=== PATIENT | female | born 1955 | race Caucasian/White ===

== ENCOUNTER → 2016-10-07 | Outpatient (CLI) | payer BC | END | disposition home or self-care (01) | LOC: C.PAPS 07:56 | PROVIDERS: ATTEND Physician Assistant | DX: Z01.419 Encounter for gynecological examination (general) (routine) without abnormal findings (principal) ==

== ENCOUNTER → 2017-01-24 | Outpatient (CLI) | payer BC ==
--- NOTE | 2017-01-24 10:04 | DIAGNOSTIC IMAGING REPORT ---
PELVIC COMPLETE NON OB CLINICAL HISTORY: 61 years-old Female presenting with pelvic pain, right lower quadrant pain on and off for one month, no abnormal bleeding. TECHNIQUE: Real-time grayscale and color and spectral Doppler ultrasound imaging of the pelvis was performed first using a transabdominal probe and subsequently transvaginal for better characterization. COMPARISON: None. FINDINGS: Uterus: Heterogeneously hypoechoic round mass along the right uterine body measures 1.9 x 1.8 x 1.8 cm, most consistent with fibroid. Anteverted. The uterus measures 8.4 x 3.7 x 4.8 cm. Endometrial stripe measures 6-8 mm in thickness. Endometrium slightly heterogeneous appearing. Questionable polypoid focus in the endometrial cavity measuring 9 mm near the fundus. Small amount of fluid in endometrial canal. Normal cervix. Right adnexa: Right ovary normal. Right ovary measures 2.3 x 1.1 x 1.2 cm. Normal color Doppler flow and arterial and venous waveforms within the ovarian parenchyma. Adnexa otherwise normal. Left adnexa: Left ovary normal. Left ovary measures 2.3 x 1.2 x 1.1 cm. Normal color Doppler flow and arterial and venous waveforms within the ovarian parenchyma. Adnexa otherwise normal. Other: No free fluid. IMPRESSION: 1. Heterogeneous endometrium with questionable focal thickening of the endometrium at the fundus. Diagnostic considerations include hyperplasia, endometrial polyp, or other benign or malignant neoplasm. This could be further evaluated with contrast-enhanced MR of the pelvis. 2. In the absence of postmenopausal bleeding, overall endometrial thickness is still within the acceptable range of normal. 3. Normal ovaries. No torsion. Electronically signed by: Daniel Stewart M.D. 01/24/2017 10:03 AM Dictated Date/Time: 01/24/2017 9:56 AM
== END | disposition home or self-care (01) ==
LOC: C.ULTR 08:08
PROVIDERS: ATTEND Nurse Practitioner Adult Health
DX: R10.2 Pelvic and perineal pain (principal)

== ENCOUNTER → 2017-02-28 | Outpatient (CLI) | payer BC ==
[~2017-02-28] MED LIST: OPTIRAY 320 IV PRN
--- NOTE | 2017-02-28 14:32 | DIAGNOSTIC IMAGING REPORT ---
CT OF THE ABDOMEN AND PELVIS WITH CONTRAST CLINICAL HISTORY: Acute right lower quadrant pain. Evaluate for acute diverticulitis. COMPARISON STUDY: Pelvic ultrasound January 24, 2017. TECHNIQUE: Following IV administration of 94 mL of Optiray-320, axial images of the abdomen and pelvis were obtained from the lung bases to the proximal femurs. Images were reviewed in the axial, sagittal, and coronal planes. IV contrast was administered without complication. A dose lowering technique was utilized adhering to the principles of ALARA. Oral contrast was administered. CT DOSE: 245.72 mGy.cm FINDINGS: The right heart chambers are mildly enlarged. The liver, spleen, adrenal glands and pancreas are normal. There is no biliary or pancreatic ductal dilatation. Note is made of a 1.5 cm cyst arising from the lower pole of the right kidney. A subcentimeter hypodense lesion within mid pole the left kidney is too small to characterize but likely reflects a cyst. Caliber and wall thickness of small and large bowel are normal. The appendix is normal. There is no lymphadenopathy or ascites. No suspicious skeletal lesions are identified. IMPRESSION: No acute process within the abdomen or pelvis. Normal appendix. Electronically signed by: Boby Paredes M.D. 02/28/2017 2:31 PM Dictated Date/Time: 02/28/2017 2:17 PM
== END | disposition home or self-care (01) ==
LOC: C.CTS 13:33
PROVIDERS: ATTEND Physician Assistant
DX: R10.31 Right lower quadrant pain (principal); R10.32 Left lower quadrant pain

== ENCOUNTER → 2017-03-13 | Outpatient (CLI) | payer BC ==
--- NOTE | 2017-03-13 12:44 | MAMMOGRAPHY REPORT ---
BILATERAL DIGITAL SCREENING MAMMOGRAM TOMOSYNTHESIS WITH CAD: 03/13/2017 CLINICAL HISTORY: Routine screening. TECHNIQUE: Breast tomosynthesis in addition to standard 2D mammography was performed. Current study was also evaluated with a Computer Aided Detection (CAD) system. COMPARISON: Comparison is made to exams dated: 03/08/2015 mammogram, 03/12/2016 mammogram, 02/04/2014 mamm ogram, 01/14/2013 mammogram, 01/06/2013 mammogram, and 01/02/2012 mammogram - [facility] BREAST COMPOSITION: There are scattered areas of fibroglandular density in both breasts. FINDINGS: The parenchymal pattern is unchanged. No developing mass, architectural distortion or clus ter of suspicious microcalcifications is seen in either breast. IMPRESSION: ACR BI-RADS CATEGORY 2: BENIGN There is no mammographic evidence of malignancy. A 1 year screening mammogram is recommended. The pa tient will receive written notification of the results. Approximately 10% of breast cancers are not detected with mammography. A negative mammographic report should not delay biopsy if a clinically suggestive mass is present. Cindy Durham M.D. ay/:03/13/2017 09:43:40 Breastfeeding Program Coordinator: Kobe SADLER(R)(M), [facility] letter sent: Normal 1/2 BI-RADS Code: ACR BI-RADS Category 2: Benign
== END | disposition home or self-care (01) ==
LOC: C.MAMM 09:27
PROVIDERS: ATTEND Obstetrics & Gynecology
DX: Z12.31 Encounter for screening mammogram for malignant neoplasm of breast (principal)

== ENCOUNTER → 2017-05-15 | Outpatient (CLI) | payer BC ==
[2017-05-15 09:33] LABS: BASO % 0.8 %; BASO ABS # 0.03 K/uL (0-0.2); COMPLETE YES; EOS % 2.7 %; HEMATOCRIT 39.4 % (37-47); IG% 0.3 %; LYMPH % 40.5 %; LYMPH ABS # 1.48 K/uL (1.2-3.4); MEAN CELL VOLUME 96.1 fL (80-100); MEAN CORPUSCULAR HEMOGLOBIN 31.2 pg (25-34); MEAN CORPUSCULAR HGB CONC 32.5 g/dl (32-36); MEAN PLATELET VOLUME 8.9 fL (7.4-10.4); NEUT % 44.7 %; PLATELET COUNT 303 K/uL (130-400); WHITE BLOOD COUNT 3.65 K/uL (4.8-10.8)
[2017-05-15 10:17] LABS: ALB/GLOB RATIO 1.1 (0.9-2); ALKALINE PHOSPHATASE 50 U/L (45-117); ALT/SGPT 21 U/L (12-78); AST/SGOT 20 U/L (15-37); BLOOD UREA NITROGEN 13 mg/dl (7-18); BUN/CREATININE RATIO 15.5 (10-20); CALCIUM 9.4 mg/dl (8.5-10.1); CARBON DIOXIDE 26 mmol/L (21-32); CHLORIDE 106 mmol/L (98-107); CHOLESTEROL 257 mg/dl (0-200); CHOLESTEROL/HDL RATIO 3.1; CREATININE 0.81 mg/dl (0.60-1.20); GLUCOSE 76 mg/dl (70-99); HDL CHOLESTEROL 84 mg/dl; LDL CHOLESTEROL CALCULATED 155 mg/dl; POTASSIUM 4.2 mmol/L (3.5-5.1); SODIUM 138 mmol/L (136-145); TRIGLYCERIDES 88 mg/dl (0-150); VERY LOW DENSITY LIPOPROT CALC 18 mg/dl
== END | disposition home or self-care (01) ==
LOC: C.LAB1850 08:44
PROVIDERS: ATTEND Family Medicine
DX: E78.00 Pure hypercholesterolemia, unspecified (principal); I51.7 Cardiomegaly

== ENCOUNTER → 2017-06-16 | Day surgery (SDC) | payer BC ==
[2017-05-20 13:30] VITALS: Ht 162.6 cm; Wt 65.9 kg
--- NOTE | 2017-06-13 07:54 | HISTORY & PHYSICAL EXAMINATION ---
DATE OF ADMISSION: 06/16/2017 The patient is for surgery on 06/16/2017. CHIEF COMPLAINT: Endometrial mass. HISTORY OF PRESENT ILLNESS: The patient is a 62-year-old white female, 3, para 3, who was found to have an endometrial mass confirmed by hysterosonogram. The patient had been having right lower quadrant pain and had a CT scan done which showed a thickened endometrium or possible endometrial mass. Hysterosonogram was then carried out. She did have a negative Pap smear 10/2016. The patient denies any bleeding. PAST MEDICAL HISTORY: ALLERGIES: THE PATIENT REPORTS ALLERGIES TO DOXYCYCLINE AND PENICILLINS. MEDICATIONS: The patient is currently taking a calcium supplement. SURGERIES: She has had a tonsillectomy at age 3. ILLNESSES: She has a history of diverticulosis. She has also had colon polyps. She has a history of osteoporosis. FAMILY HISTORY: Her mother has celiac disease. Her father had colon cancer. SOCIAL HISTORY: The patient denies smoking cigarettes. She does drink 5-6 drinks of alcohol per week. PHYSICAL EXAMINATION: GENERAL: Height 5 feet 3 inches, weight 142 pounds. VITAL SIGNS: Blood pressure 118/80. HEENT: Grossly within normal limits. NECK: Supple without masses. CHEST: Her lungs are clear without wheezing. HEART: Regular rate and rhythm. No murmurs, gallops or rubs. ABDOMEN: Soft and nontender with no masses. PELVIC: External genitalia normal. Vagina pink and smooth. Cervix is normal in appearance. Uterus within normal limit size and nontender. Adnexa nontender with no masses palpable. EXTREMITIES: No cyanosis, clubbing or edema. IMPRESSION: A 62-year-old menopausal white female with an endometrial mass confirmed by hysterosonogram. PLAN: The patient is for hysteroscopy, dilation of the cervix and curettage with possible removal of polyp/lesion. The patient is aware of the risks of bleeding, infection, perforation of the uterus, damage to internal organs and possible need for further treatment. The patient wishes to proceed with the above surgery. RASHEEDA
[~2017-06-16] VITALS: Ht 162.6 cm; Wt 65.9 kg
[~2017-06-16] MED LIST changes: +ATROPINE SULFATE 0.1 MG/ML 5ML SYR IV PRN; +DEXAMETHASONE SOD INJ 4 MG/ML VIAL ONE; +EpHEDrine SULFATE INJ 50 MG/ML AMP IV PRN; +FENTANYL CITRATE INJ 50 MCG/1 ML 2 ML VIAL IV PRN; +FENTANYL CITRATE INJ 50 MCG/1 ML 2 ML VIAL ONE; +HYDROmorphone INJ 0.5 MG/0.5 ML SYR IV PRN; +IBUPROFEN 200 MG TAB ONE; +IBUPROFEN 600 MG TAB PO PRN; +LACTATED RINGER'S 1000ML 1,000 ML IV SCH; +LIDOCAINE HCL 2% 2 ML VIAL (20MG/ML) ONE; +MIDAZOLAM HCL 1 MG/ML 2ML VIAL ONE; +ONDANSETRON INJ 2 MG/ML 2 ML VIAL IV PRN; +ONDANSETRON INJ 2 MG/ML 2 ML VIAL ONE; -OPTIRAY 320 IV PRN; +PROMETHAZINE HCL INJ 12.5 MG in SODIUM CHLORIDE 0.9% 50ML 50 ML IV PRN; +PROPOFOL IV EMULSION 10 MG/ML 20 ML VIAL IV ONE; +SODIUM CHLORIDE 0.9% 1000ML 1,000 ML IV SCH
--- NOTE | 2017-06-16 07:47 | History & Physical Bridge - SC ---
H&P Re-Evaluation Bridge Note: I have examined the patient, reviewed the History & Physical and in the interval since the performance of the History & Physical I have noted the following changes of clinical significance: No changes noted
--- NOTE | 2017-06-16 08:31 | [facility] Post Operative Brief Note ---
Immediate Operative Summary Operative Date Jun 16, 2017. Pre-Operative Diagnosis Endometrial mass Post-Operative Diagnosis Same as preop Procedure(s) Performed Dilatation And Curettage, Hysteroscopy, Resection of endometrial mass Surgeon Dr. Renee [employer] Surgeon(s) None Estimated Blood Loss 20 mL Findings See dictated note. Specimens A: Endocervical curettings B: Endometrial curettings C: Endometrial mass Complication(s) None Disposition Surgical ICU
--- NOTE | 2017-06-16 08:39 | Discharge Instructions-SurgCtr ---
Discharge Instructions Date of Service Jun 16, 2017. Visit Reason for Visit: Endometrial Mass Discharge Discharge Diagnosis / Problem: S/P Hysteroscopy, D&C, resection of endometrial masses Discharge Goals Goal(s): Diagnostic testing Activity Recommendations Activity Limitations: per Instructions/Follow-up section Anesthesia . Post Anesthesia Instructions: If you have had General Anesthesia or IV Sedation: * Do not drive today. * Resume driving when surgeon permits. * Do not make important decisions or sign legal documents today. * Call surgeon for: 1. Temperature elevations greater than 101 degrees F. 2. Uncontrollable pain. 3. Excessive bleeding. 4. Persistent nausea and vomiting. 5. Medication intolerance (nausea, vomiting or rash). * For nausea and vomiting use only clear liquids such as: tea, soda, bouillon until nausea subsides, then gradually increase diet as tolerated. * If you have any concerns or questions, call your surgeon's office. If physician is unavailable and it is an emergency, call 911 or go to the nearest emergency room. . Instructions / Follow-Up Instructions / Follow-Up ACTIVITY RECOMMENDATIONS: * Avoid tampons, douching, hot tubs, pools, and intercourse until bleeding has stopped. * May shower as usual. * No strenuous activity for 24-48 hours. After 24-48 hours, you may do anything you feel like doing (driving and sports are okay). SPECIAL CARE INSTRUCTIONS: Special Diet: * Mild nausea may occur in the immediate post-operative period. * Take clear liquids such as tea, cola or bouillon until all nausea has subsided; you may then resume your normal diet. Special Care: * Light bleeding and vaginal spotting can last from a few days to 3-4 weeks. Call your doctor if bleeding becomes heavier than the heaviest part of your period. * Check your temperature twice a day for one week. If it goes above 100.4 degrees Fahrenheit (38.0 Celsius), notify your doctor. Call if you have persistent cramping, foul vaginal discharge or nausea and vomiting. * Call your doctor's office for an appointment for 2-4 weeks after your surgery. [phone] FOLLOW-UP VISIT: Call your doctor's office for an appointment for 2-4 weeks after your surgery. Make an appointment with Dr Renee, [phone]. Diet Recommendations Home Diet: resume previous diet Procedures Procedures Performed: Dilatation And Curettage, Hysteroscopy, Resection of endometrial mass Pending Studies Studies pending at discharge: yes List of pending studies: We will call you with the pathology report, we should have the result in about one week. Medical Emergencies . Who to Call and When: Medical Emergencies: If at any time you feel your situation is an emergency, please call 911 immediately. . Non-Emergent Contact Non-Emergency issues call your: Filling Carrier Call Non-Emergent contact if: temperature is above 100.5 . . "Provider Documentation" section prepared by Flor Renee. .
--- NOTE | 2017-06-16 08:49 | OPERATIVE REPORT ---
DATE OF OPERATION: 06/16/2017 PREOPERATIVE DIAGNOSIS: Endometrial mass. POSTOPERATIVE DIAGNOSIS: Same with pathology pending. PROCEDURE: Hysteroscopy, dilation and curettage, resection of endometrial mass. SURGEON: Dr. Flor Renee. ANESTHESIA: General. ANESTHESIOLOGIST: Dr. Melgoza. DESCRIPTION OF PROCEDURE: The patient was taken to the operating room where general anesthesia was administered. After an adequate level was obtained, she was placed in dorsal lithotomy position. Vulva, vagina, and cervix were prepped with Betadine solution. The patient was draped. Bladder was drained with a straight catheter. Weighted speculum was placed in the posterior fornix of the vagina after bimanual exam was performed. Bimanual exam revealed the uterus to be normal size and anterior. There were no adnexal masses. Endocervical curettings were obtained. The cervix was somewhat stenotic, so a small curved hemostat was used to open it. The cervix was then dilated up to a #23. Hysteroscope was introduced into the endometrial cavity. There was a sessile polypoid mass along the posterior wall of the uterus. Photos were taken. There were no other lesions visible at that time. MyoSure instrument was then used to resect this sessile mass. After that was performed, there was an additional white-appearing lesion in the left cornua of the uterus. It was also possible to resect this mass using the MyoSure. Tissue from both masses was sent as one to pathology. Photos were taken. The MyoSure instrument was removed. Small serrated curette was then used to perform curettage for an additional scant amount of tissue. At this point, the procedure was ended. Estimated blood loss for the entire procedure was less than 20 mL. The patient tolerated the procedure well and was taken to the recovery room in good condition. I attest to the content of the Intraoperative Record and any orders documented therein. Any exceptions are noted below. MTDD
[2017-06-16 09:13] VITALS: TEMP 36.5
[2017-06-16 09:52] VITALS: BP 139/84; PULSE 50; O2SAT 99
--- NOTE | 2017-06-16 10:10 | Anesthesia Progress Nt - [facility] ---
Anesthesia Post Op Note Date & Time Jun 16, 2017 at 10:09 Vital Signs Pain Intensity: 0 Vital Signs Past 12 Hours Date Time Temp Pulse Resp B/P (MAP) Pulse Ox O2 Delivery O2 Flow Rate FiO2 06/16/17 09:52 50 16 139/84 (102) 99 Room Air 06/16/17 09:20 43 16 144/86 (105) 99 Room Air 06/16/17 09:13 36.5 46 16 124/77 98 Room Air 06/16/17 09:09 47 13 97 06/16/17 09:09 46 13 06/16/17 09:08 46 17 06/16/17 09:08 45 17 100 06/16/17 09:06 150/77 06/16/17 09:03 49 18 06/16/17 09:03 49 18 99 06/16/17 09:01 121/87 06/16/17 08:58 44 13 06/16/17 08:58 43 13 100 06/16/17 08:56 136/76 06/16/17 08:53 44 10 100 06/16/17 08:53 45 10 06/16/17 08:51 137/76 06/16/17 08:48 43 10 06/16/17 08:48 43 10 100 06/16/17 08:47 52 14 06/16/17 08:47 54 14 100 06/16/17 08:46 118/74 06/16/17 08:42 36.7 54 14 124/81 100 Mask 06/16/17 08:42 54 124/81 99 06/16/17 08:42 54 06/16/17 07:05 36.5 57 16 130/87 (101) 96 Room Air Notes Mental Status: alert / awake / arousable, participated in evaluation Pt Amnestic to Procedure: Yes Nausea / Vomiting: adequately controlled Pain: adequately controlled Airway Patency, RR, SpO2: stable & adequate BP & HR: stable & adequate Hydration State: stable & adequate Anesthetic Complications: no major complications apparent
== END | disposition home or self-care (01) ==
LOC: X.SURG 06:43
PROVIDERS: ATTEND Obstetrics & Gynecology
DX: N84.0 Polyp of corpus uteri (principal); M81.0 Age-related osteoporosis without current pathological fracture; K57.30 Diverticulosis of large intestine without perforation or abscess without bleeding; I51.7 Cardiomegaly; E78.00 Pure hypercholesterolemia, unspecified; K64.8 Other hemorrhoids; Z87.01 Personal history of pneumonia (recurrent); Z80.0 Family history of malignant neoplasm of digestive organs; Z81.1 Family history of alcohol abuse and dependence